=== PATIENT | female | born 1980 | race Caucasian/White ===

== ENCOUNTER 2020-05-07 15:30 | Emergency (ER) | payer OTHER, SELFPAY ==
[2020-05-08 11:49] LABS: SARS-CoV-2 MS2 Positive; SARS-CoV-2 N Gene Positive; SARS-CoV-2 S Gene Positive; SARS-CoV-2 orf1ab Positive
== END 2020-05-07 15:52 | disposition home or self-care (01) ==
LOC: ERS 15:30
DX: U07.1 COVID-19 (principal); R50.9 Fever, unspecified
CPT/HCPCS: 87635; 99283; U0003

== ENCOUNTER 2022-11-03 12:25 | Emergency (ER) | payer SELFPAY | END 2022-11-03 14:05 | disposition home or self-care (01) | LOC: ERS 12:25 | DX: L03.114 Cellulitis of left upper limb (principal) | CPT/HCPCS: 99283 ==

== ENCOUNTER 2022-11-06 18:50 | Emergency (ER) | payer SELFPAY ==
[2022-11-06] MEDS ORDERED: Lidocaine 1% PF 5 ML VIAL ONE (23:47)
== END 2022-11-07 01:22 | disposition home or self-care (01) ==
LOC: ERS 18:50
DX: L02.412 Cutaneous abscess of left axilla (principal)
CPT/HCPCS: 10060